=== PATIENT | male | born 1980 | race Caucasian/White ===

== ENCOUNTER → 2017-06-02 | Outpatient (CLI) | payer BC ==
--- NOTE | 2017-06-02 22:40 | CONS ---
CONSULTATION REASON FOR CONSULTATION: Sleep apnea. This is a very healthy 37-year-old male patient coming in for evaluation of sleep apnea. 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 He sometimes falls asleep while driving his car; however, he has never been involved in a car accident. He snores and has been told by his fiancee that he stops breathing during sleep. He goes to bed around 8 p.m., wakes up at 4:25 a.m. in the morning. He is averaging about 7 to 8 hours of sleep. He is tired and fatigued. His [place] score is 14. He has gained around 100 pounds since his high school years. No alcoholism. No substance abuse. No other complaints otherwise for now. Otherwise he does not have any medical problems or comorbidities and he has been essentially healthy. PAST MEDICAL HISTORY: Negative. PAST SURGICAL HISTORY: Negative. DRUG ALLERGIES: NOT KNOWN. MEDICATIONS: None. SOCIAL HISTORY: Nonsmoker. No history of alcohol. No history of IV drugs. FAMILY HISTORY: Negative for sleep apnea. REVIEW OF SYSTEMS: Twelve-point review of system was done. Positive findings are all mentioned above in the history of present illness. No sleepwalking or sleeptalking. No grinding of the teeth. No restlessness in his lower extremities. No anxiety or panic attacks. Occasional heartburn, mainly in the morning. BP is 137/85, pulse 88, respiration 16, temperature 97.3, saturation 94% on room air. Neck size 17-1/2 inches. Weight 304. Height is 5 feet 9 inches. BMI is 44.8. GENERAL APPEARANCE: Calm, comfortable. Head is atraumatic, normocephalic. NECK: Supple. There is no JVD. No goiter or neck masses. LUNGS: Diminished; otherwise clear. HEART: Heart sounds are regular rate and rhythm. Normal S1, S2. No S3. No S4. No murmurs. ABDOMEN: Soft, nontender. No organomegaly. EXTREMITIES: No edema. No cyanosis or clubbing. IMPRESSION: 1. Obstructive sleep apnea clinically suspected, currently under investigation. 2. Obesity with a body mass index of 44.8 with interval 100-pound weight gain. 3. Hypersomnia with an [place] score of 14. 4. Mallampati class 4. PLAN: Proceed with a home sleep study and decide on treatment accordingly. Suspect obstructive sleep apnea. Clinical suspicion is high. MMODL / IJN: [id number] /
== END | disposition home or self-care (01) ==
LOC: SLEEP 15:43
PROVIDERS: ATTEND Internal Medicine Critical Care Medicine
DX: G47.33 Obstructive sleep apnea (adult) (pediatric) (principal); G47.10 Hypersomnia, unspecified; E66.9 Obesity, unspecified; Z68.41 Body mass index [BMI] 40.0-44.9, adult
CPT/HCPCS: 99211

== ENCOUNTER → 2017-09-08 | Outpatient (CLI) | payer BC ==
--- NOTE | 2017-09-08 16:48 | PN ---
PROGRESS NOTE Gerardo is 37 with a diagnosis of severe symptomatic obstructive sleep apnea and AHI of 114. The patient also had sleep nocturnal oxygen desaturation. He suffers from chronic hypersomnia and sleepiness with [place] score of 14. He underwent CPAP titration. He ultimately was given a VPAP auto with pressures of 18/14 and a pressure support of 4. On today's evaluation the patient is coming in for a followup. He feels great. He was much improved in terms of sleep quality and is much more alert and awake during the day. His weight has been stable. He is benefitting from the treatment. His VPAP auto is being set at a pressure of 18/10 with a pressure support of 4 and he is averaging around 7.2 hours of VPAP use per night and his tidal volume is at 660 mL with a rate of 12 and his AHI is down to 1.3. He is using a Simplus full face mask. He is averaging around 7.2 hours of CPAP use per night and his compliancy for more than 4 hours is 100%. He has no complaints and he is very happy with the overall clinical response. PHYSICAL EXAMINATION: His current vital signs are as follows: BP is 122/69, pulse 80, respirations 16, temperature is 97.4, weight is 303, saturation 95% on room air. GENERAL APPEARANCE: Calm, comfortable. Head is atraumatic, normocephalic. Neck is short, supple, crowding of the posterior pharynx with no goiter or neck masses. LUNGS: Clear to auscultation. HEART: Sounds are regular rate and rhythm. Normal S1/S2. No murmurs. ABDOMEN: Obese, soft. Organs cannot be palpated. There is no direct tenderness, rebound or guarding. EXTREMITIES: No edema. No cyanosis or clubbing. NEUROLOGIC: The patient is alert and awake and there are no focal neurological deficits. PSYCHIATRIC: The patient has no anxiety or depression. IMPRESSION: 1. Severe symptomatic obstructive sleep apnea with an AHI of 114. The patient underwent successful VPAP treatment. 2. Morbid obesity. 3. Hypersomnia, improved. PLAN: 1. Continue VPAP auto at same setting 18/40 with a pressure support of 4. 2. Encourage weight loss. 3. Treatment is successful. 4. Optimize sleep hygiene measures. 5. See me back in a year's time earlier if needed. MMODL / IJN: [id number] /
== END | disposition home or self-care (01) ==
LOC: SLEEP 15:34
PROVIDERS: ATTEND Internal Medicine Critical Care Medicine
DX: G47.33 Obstructive sleep apnea (adult) (pediatric) (principal); E66.01 Morbid (severe) obesity due to excess calories; Z99.89 Dependence on other enabling machines and devices

== ENCOUNTER → 2022-06-09 | Outpatient (CLI) | payer BC ==
--- NOTE | 2022-06-09 12:01 | US ---
EXAMINATION TYPE: US venous doppler duplex LE RT DATE OF EXAM: 06/09/2022 11:55 AM COMPARISON: NONE CLINICAL HISTORY: I80.201PHLBTS AND THOMBOPHLB L03.115 CELLULITIS OF. Calf redness. Painful. Patien t states having a hx of cellulitis. No hx DVT. SIDE PERFORMED: Right TECHNIQUE: The lower extremity deep venous system is examined utilizing real time linear array sonog dalia with graded compression, doppler sonography and color-flow sonography. VESSELS IMAGED: Common Femoral Vein Deep Femoral Vein Greater Saphenous Vein * Femoral Vein Popliteal Vein Small Saphenous Vein * Proximal Calf Veins (* superficial vessels) Grayscale, color doppler, spectral doppler imaging performed of the deep veins of the lower extremiti es. There is normal flow, compressibility, vascular waveforms. Right Leg: Negative for DVT IMPRESSION: No ultrasound evidence for deep venous thrombosis of the right lower extremity.
== END | disposition home or self-care (01) ==
LOC: RADUSWWP 11:27
PROVIDERS: ATTEND Family Medicine
DX: I80.201 Phlebitis and thrombophlebitis of unspecified deep vessels of right lower extremity (principal); L03.115 Cellulitis of right lower limb